=== PATIENT | male | born 1985 | race Caucasian/White ===

== ENCOUNTER 2020-10-18 12:46 | Emergency (ER) | payer OTHER ==
[~2020-10-18] VITALS: Ht 185.4 cm; Wt 108.9 kg
[2020-10-18] MEDS ORDERED: CASIRIVIMAB/IMDEVIMAB 10 ML in SODIUM CHLORIDE 0.9% 100 ML IV ONE (13:00)
[2020-10-18 14:15] VITALS: BP 135/74
== END 2020-10-18 14:15 | disposition home or self-care (01) ==
LOC: ER 12:50
DX: R05 Cough (principal); U07.1 COVID-19
CPT/HCPCS: 99283; J7050